=== PATIENT | female | born 1995 | race Caucasian/White ===

== ENCOUNTER 2018-12-06 04:45 | Emergency (ER) | payer OTHER ==
[2018-12-06 04:54] VITALS: BP 136/73
--- NOTE | 2018-12-06 05:21 | ER Document Report ---
HPI - HPI Time Seen by Provider: 12/06/18 05:13 Pain Level: 4 Notes: Patient is a 23-year-old female who presents to the emergency department with the chief complaint of vaginal pain. Patient states that yesterday she started to have urinary urgency as well as frequency. Patient states she is having a clear vaginal discharge without itching. Patient is complaining of burning on the inside and outside of her vagina that has been constant. Patient states she was diagnosed with a UTI 1 month ago but that this feels worse. Patient did start Azo yesterday without relief. Patient reports nausea. Patient also complaint of lower back pain. Patient states that she is sexually active with her . States that she is not concerned with STDs and that she gets tested every year. - GASTROINTESTINAL Gastrointestinal: REPORTS: Abdominal Pain - URINARY Urinary: REPORTS: Urgency - REPRODUCTIVE Reproductive: DENIES: : Past Medical History - General Information source: Patient - Social History Smoking Status: Never Smoker Cigarette use (# per day): No Chew tobacco use (# tins/day): No Smoking Education Provided: No Frequency of alcohol use: None Drug Abuse: None Lives with: Spouse/Significant other Family History: None Patient has suicidal ideation: No Patient has homicidal ideation: No - Past Medical History Cardiac Medical History: Reports: None Pulmonary Medical History: Reports: None EENT Medical History: Reports: None Neurological Medical History: Reports: None Endocrine Medical History: Reports: None Renal/ Medical History: Reports: None. Denies: Hx Peritoneal Dialysis Malignancy Medical History: Reports: None GI Medical History: Reports: None Musculoskeletal Medical History: Reports None Skin Medical History: Reports None Psychiatric Medical History: Reports: None Traumatic Medical History: Reports: None Infectious Medical History: Reports: None Past Surgical History: Reports: None Vertical Provider Document - CONSTITUTIONAL Agree With Documented VS: Yes Exam Limitations: No Limitations General Appearance: No Apparent Distress - INFECTION CONTROL TRAVEL OUTSIDE OF THE [place] IN LAST 30 DAYS: No - HEENT Notes: GENERAL: Well-appearing, well-nourished and in no acute distress. HEAD: Atraumatic, normocephalic. EYES: Pupils equal round and reactive to light, extraocular movements intact, sclera anicteric, conjunctiva are normal. ENT: TMs normal, nares patent, oropharynx clear without exudates. Moist mucous membranes. NECK: Normal range of motion, supple without lymphadenopathy or JVD. LUNGS: Breath sounds clear to auscultation bilaterally and equal. No wheezes rales or rhonchi. HEART: Regular rate and rhythm without murmurs, rubs or gallops. ABDOMEN: Soft, suprapubic tenderness, normoactive bowel sounds. No guarding, no rebound. No masses appreciated. BACK: No cervical, thoracic, lumbar midline tenderness. No saddle anesthesia, normal distal neurovascular exam. EXTREMITIES: Normal range of motion, no pitting or edema. No clubbing or cyanosis. NEUROLOGICAL: Cranial nerves II through XII grossly intact. Normal speech, normal gait. PSYCH: Normal mood, normal affect. SKIN: Warm, Dry, normal turgor, no rashes or lesions noted. Course - Re-evaluation Re-evalutation: 12/06/18 05:20 Will setup pelvic exam. - Vital Signs Vital signs: Temp Pulse Resp BP Pulse Ox 97.5 F 59 L 18 136/73 H 99 12/06/18 04:51 12/06/18 04:51 12/06/18 04:51 12/06/18 04:51 12/06/18 04:51 Procedures - Pelvic Exam Pelvic exam Time completed: 17:40 Cultures obtained: Yes Wet prep obtained: Yes Foreign body removed: No Bimanual exam performed: No - Patient was extremely tender with insertion and movement of speculum Witnessed by: KAREN GRANT Notes: 12/06/18 05:50 External genitalia unremarkable without excoriation, erythema or discharge. Patient was unable to tolerate the initial insertion of the speculum. Patient reported significant pelvic discomfort. I immediately stopped inserting the speculum. Patient was able to calm down and relax and stated I could attempt to insert the speculum again. The second insertion was successful but patient did have severe tenderness. Large amount of thick white discharge noted in the vaginal vault and around cervix. Cultures sent. Discharge - Discharge Clinical Impression: Bacterial vaginosis, Debora vaginitis, Pelvic infection Condition: Stable Disposition: HOME, SELF-CARE Additional Instructions: Today you were seen in the ER for vaginal pain. You did test positive for yeast and bacterial vaginosis. Due to your significant pain I have treated you for a pelvic infection. I have sent a urine culture which will result in about 48 hours - you will be contacted if you need another antibiotic. Please follow up with your primary care physician to have a recheck to make sure your infection has resolved. Please return to the emergency department worsening symptoms, fever, vomiting or any other concerning signs or symptoms. Vaginal Yeast Infection You have evidence of a yeast infection -- called "debora." A vaginal yeast infection often causes itching and discharge. While not dangerous, it can be very unpleasant. A yeast infection often follows the use of powerful antibiotics. It is more likely to occur in diabetics. The treatment now is usually a single pill of Diflucan, but also an antifungal cream or suppository may be used for a few days. You do not need to avoid sexual intercourse. Recurrences are common. You can make a recurrence less likely by wearing cotton underwear and avoiding tight clothing. For mild recurrences, you can try [id number] creams or suppositories that are made specifically for yeast. If the symptoms do not resolve, you should follow up for re-examination. Sometimes treatment of the sexual partner is necessary if infections are recurrent. Pelvic Inflammatory Disease You have been diagnosed as having pelvic inflammatory disease (PID). This is an infection of the fallopian tubes and surrounding areas of the pelvis. Symptoms are usually pelvic pain and discharge. The infection can do permanent damage to the tubes and ovaries. It should be taken very seriously. Treatment is antibiotics, which may be given by vein or by injection if the infection seems serious. It's important that you receive all recommended medication. Condoms help prevent spread of this infection to others. Because this infection is spread sexually, it's important that your sexual partner be checked before resuming sexual relations. If a culture shows gonorrhea or chlamydia organisms, the law requires that this be reported to the health department. Call the doctor or return at once if you develop increasing fever, rash, severe pelvic pain, vaginal bleeding (other than your period), or problems with your bladder or bowels. Vaginosis, Bacterial Your exam shows you have bacterial vaginosis. This condition is due to an overgrowth of bacteria in the vagina. Symptoms may include vaginal itching or pain, a smelly discharge, and sometimes burning with urination. Normally this is not transmitted by sexual contact. Vaginosis can be treated with oral or topical antibiotics. Metronidazole (Flagyl) pills are usually effective. Topical vaginal creams include Cleocin and Metro-Gel. You should avoid sexual contact until your symptoms are all better. Call the doctor if you develop pelvic pain, fever, or problems with urination, or if you don't improve as expected. Prescriptions: Fluconazole [Diflucan] 150 mg PO ONCE PRN #1 tablet PRN Reason: Metronidazole [Flagyl 500 mg Tablet] 500 mg PO BID 7 Days #14 tablet Referrals: ENRIQUE BARTHOLOMEW MD [Primary Care Provider] - Follow up as needed
[2018-12-06 05:31] LABS: APPEARANCE,URINE CLEAR; BILIRUBIN,URINE NEGATIVE (NEGATIVE); COLOR,URINE AMBER; GLUCOSE, URINE NEGATIVE (NEGATIVE); KETONES,URINE NEGATIVE (NEGATIVE); LEUKOCYTE ESTERASE,URINE MODERATE (NEGATIVE); NITRITE,URINE POSITIVE (NEGATIVE); PROTEIN,URINE NEGATIVE (NEGATIVE); URINE SPECIFIC GRAVITY 1.001
[2018-12-06 06:06] LABS: BACTERIA (WET MOUNT) 3+ BACTERIA SEEN; T.VAGINALIS (WET MOUNT) NO TRICHOMONAS SEEN; WBCS (WET MOUNT) 2+ WBCS SEEN; YEAST (WET MOUNT) YEAST SEEN
[2018-12-06] MEDS ORDERED: CEFTRIAXONE INJ 250 MG VIAL IM ONE (06:27)
[2018-12-06] MEDS ORDERED: AZITHROMYCIN 250 MG TABLET PO ONE (06:27)
[2018-12-06] MEDS ORDERED: FLUCONAZOLE 100 MG TABLET PO ONE (06:32)
[2018-12-06 07:28] LABS: CHLAM PCR NOT DETECTED (NOT DETECT); GON PCR NOT DETECTED (NOT DETECT)
== END 2018-12-06 07:48 | disposition home or self-care (01) ==
LOC: ER 04:45
DX: N76.0 Acute vaginitis (principal); B96.89 Other specified bacterial agents as the cause of diseases classified elsewhere; B37.3 Candidiasis of vulva and vagina; N73.9 Female pelvic inflammatory disease, unspecified; R10.2 Pelvic and perineal pain; R39.15 Urgency of urination; R35.0 Frequency of micturition; Z87.440 Personal history of urinary (tract) infections; M54.5 Low back pain
CPT/HCPCS: 99283; 96372; 87086; 87210; 81025; 87088; 81001; 87491; 87591; J0696